=== PATIENT | male | born 1950 | race Caucasian/White ===

== ENCOUNTER 2021-02-27 15:31 | Emergency (ER) | payer OTHER ==
[~2021-02-27] VITALS: Ht 182.9 cm; Wt 77.1 kg
[~2021-02-27 15:31] MED LIST: ACET500 PO; ALBU90OI INH; ASPI81CH PO; BUDE.25 NEB; CYAN100 PO; DOCU100 PO; FOLI1 PO; MEGE40T PO; METH5 PO; METO25 PO; METO25ER PO; Multivitamin1 EAC1 PO; OXYC5 PO; PYRI100 PO; QUET100 PO; RANI150 PO; THIA100 PO; TRAZ50 PO; ZESTORETIC 20-121 EA PO
[2021-02-27] MEDS ORDERED: LOPE2C PO (20:04)
== END 2021-02-27 20:35 | disposition home or self-care (01) ==
LOC: ER 15:31
DX: R19.7 Diarrhea, unspecified (principal); E87.6 Hypokalemia; R00.0 Tachycardia, unspecified; I25.10 Atherosclerotic heart disease of native coronary artery without angina pectoris; I10 Essential (primary) hypertension; I48.91 Unspecified atrial fibrillation; E78.00 Pure hypercholesterolemia, unspecified; F17.210 Nicotine dependence, cigarettes, uncomplicated; Z79.82 Long term (current) use of aspirin; Z79.899 Other long term (current) drug therapy
CPT/HCPCS: 93005; 93010; 96365; 96366; 96368; 99285-25; J3475; J3480; J7030

== ENCOUNTER 2021-07-01 16:24 | Inpatient (IN) | payer OTHER ==
[~2021-07-01] VITALS: Ht 182.9 cm; Wt 60.8 kg
[~2021-07-01 16:24] MED LIST changes: +LOPE2C PO
[2021-07-01] MEDS ORDERED: ATOR40TA PO (16:43)
[2021-07-01] MEDS ORDERED: THERA-D2000 UNIT PO (16:44)
[2021-07-01] MEDS ORDERED: LEVOTHYROXINE PO (16:45)
[2021-07-01] MEDS ORDERED: OMEP20ER PO (16:46)
[2021-07-01 17:09] LABS: BASOPHILS ABSOLUTE AUTO 0.03 K/mm3 (0.00-0.23); BASOPHILS PERCENT AUTO 0 % (0-2); EOSINOPHILS PERCENT AUTO 0 % (0-6); Hematocrit 34.5 % (37.0-53.0); Hemoglobin 12.3 g/dL (13.5-17.5); IMMATURE GRAN ABSOLUTE AUTO 0.24 K/mm3 (0.00-0.10); IMMATURE GRAN PERCENT AUTO 1 % (0-1); LYMPHOCYTES ABSOLUTE AUTO 0.68 K/mm3 (0.84-5.20); LYMPHOCYTES PERCENT AUTO 3 % (21-46); MONOCYTES ABSOLUTE AUTO 4.73 K/mm3 (0.16-1.47); MONOCYTES PERCENT AUTO 22 % (4-13); Mean Corpuscular HGB 35.8 pg (26.0-34.0); Mean Corpuscular HGB Conc 35.7 g/dL (31.5-36.5); Mean Corpuscular Volume 100 fL (80-100); Mean Platelet Volume 12.2 fL (9.1-12.4); NEUTROPHILS ABSOLUTE AUTO 15.99 K/mm3 (1.96-9.15); NEUTROPHILS PERCENT AUTO 74 % (41-73); Platelet Count 199 K/mm3 (150-400); RDW Coefficient Variation 14.6 % (11.7-14.2); RDW Standard Deviation 52.9 fL (35.1-46.3); Red Blood Cell Count 3.44 M/mm3 (4.30-5.90); White Blood Cell Count 21.67 K/mm3 (4.00-11.30)
[2021-07-01 17:29] LABS: Alanine Aminotransfer (ALT/SGP 36 U/L (12-78); Albumin, Blood 3.2 g/dL (3.4-5.0); Albumin/Globulin Ratio 0.8 (0.8-1.8); Alk Phos 113 U/L (50-136); Anion Gap 12 mmol/L (6-16); Aspartate Aminotrans (AST/SGOT 80 U/L (12-37); Bilirubin, Total 0.9 mg/dL (0.1-1.0); Blood Urea Nitrogen 32 mg/dL (8-24); Bun/Creatinine Ratio 49.6 (12.0-20.0); CO2, Blood 18 mmol/L (21-32); Chloride, Blood 105 mmol/L (98-108); Creatinine, Blood 0.65 mg/dL (0.60-1.20); Glomerular Filtration Rate >60 (60-); Glucose, Blood 195 mg/dL (70-99); Magnesium, Blood 1.8 mg/dL (1.6-2.4); Potassium, Blood 3.6 mmol/L (3.5-5.5); Sodium, Blood 135 mmol/L (136-145); Total Protein, Blood 7.2 g/dL (6.4-8.2)
[2021-07-01 17:43] LABS: Influenza A, PCR NEGATIVE (NEGATIVE); Influenza B, PCR NEGATIVE (NEGATIVE); Resp Syncytial Virus, PCR NEGATIVE (NEGATIVE); SARS-Cov-2 (COVID-19) PCR, MMC NEGATIVE (NEGATIVE)
--- NOTE | 2021-07-01 23:05 | NUR ---
SISTER / MANAGES PT CARE [facility] [phone]
[2021-07-01 23:32] LABS: Anti-Xa UFH, PHA Monitoring <0.10 IU/mL; Prothrombin Time Results 10.5 Sec (9.7-11.5)
[2021-07-02 01:15] LABS: BASOPHILS ABSOLUTE AUTO 0.03 K/mm3 (0.00-0.23); BASOPHILS PERCENT AUTO 0 % (0-2); EOSINOPHILS ABSOLUTE AUTO 0.02 K/mm3 (0.00-0.68); EOSINOPHILS PERCENT AUTO 0 % (0-6); Hematocrit 32.1 % (37.0-53.0); Hemoglobin 10.9 g/dL (13.5-17.5); IMMATURE GRAN PERCENT AUTO 1 % (0-1); LYMPHOCYTES ABSOLUTE AUTO 1.22 K/mm3 (0.84-5.20); LYMPHOCYTES PERCENT AUTO 7 % (21-46); MONOCYTES ABSOLUTE AUTO 3.45 K/mm3 (0.16-1.47); MONOCYTES PERCENT AUTO 20 % (4-13); Mean Corpuscular Volume 103 fL (80-100); Mean Platelet Volume 11.5 fL (9.1-12.4); NEUTROPHILS PERCENT AUTO 72 % (41-73); Platelet Count 151 K/mm3 (150-400); RDW Coefficient Variation 14.7 % (11.7-14.2); RDW Standard Deviation 55.8 fL (35.1-46.3); Red Blood Cell Count 3.11 M/mm3 (4.30-5.90); White Blood Cell Count 16.92 K/mm3 (4.00-11.30)
[2021-07-02 01:35] LABS: International Normalized Ratio 1.08; Prothrombin Time Results 11.3 Sec (9.7-11.5)
[2021-07-02 01:46] LABS: Alanine Aminotransfer (ALT/SGP 33 U/L (12-78); Albumin, Blood 2.9 g/dL (3.4-5.0); Albumin/Globulin Ratio 0.8 (0.8-1.8); Alk Phos 93 U/L (50-136); Anion Gap 9 mmol/L (6-16); Aspartate Aminotrans (AST/SGOT 67 U/L (12-37); Bilirubin, Total 0.5 mg/dL (0.1-1.0); Blood Urea Nitrogen 29 mg/dL (8-24); Bun/Creatinine Ratio 55.6 (12.0-20.0); CO2, Blood 24 mmol/L (21-32); Calcium, Blood 8.3 mg/dL (8.5-10.1); Chloride, Blood 105 mmol/L (98-108); Creatinine, Blood 0.52 mg/dL (0.60-1.20); Globulin, Blood 3.7 g/dL (2.2-4.0); Glomerular Filtration Rate >60 (60-); Glucose, Blood 120 mg/dL (70-99); Magnesium, Blood 2.3 mg/dL (1.6-2.4); Potassium, Blood 3.4 mmol/L (3.5-5.5); Sodium, Blood 138 mmol/L (136-145); Total Protein, Blood 6.6 g/dL (6.4-8.2)
[2021-07-02 08:42] LABS: Source, Urine Foley catheter
[2021-07-02 08:50] LABS: Appearance, Urine Clear (Clear); Bilirubin, Urine Neg (Neg); Blood, Urine 1+ (Neg); Color, Urine Yellow (P-Yellow); Glucose Qualitative, Urine Neg (Neg); Ketones, Urine Neg (Neg); Leukocyte Esterase, Urine Neg (Neg); Nitrite, Urine Neg (Neg); Protein, Urine 2+ (Neg); Specific Gravity, Urine 1.025 (1.003-1.022); Urobilinogen, Urine NORM (Normal)
[2021-07-02 09:09] LABS: U Amphetamine Screen Not Detected; U Barbituate Screen Not Detected; U Benzodiazapine Screen Not Detected; U Buprenorphine Screen Not Detected; U Cannabinoids Screen Not Detected; U Cocaine Screen Not Detected; U Methadone Screen Not Detected; U Methamphetamine Screen Not Detected; U Opiates Screen DETECTED; U Oxycodone Screen Not Detected; U Phencyclidine Screen Not Detected; U Propoxyphene Screen Not Detected
[2021-07-02 09:17] LABS: Bacteria Rare /hpf; Mucus Mod (0-Heavy); Red Blood Cells, Urine 0-2 /hpf (0-2); Squamous Epithelial Cells Not Seen /hpf (Few); White Blood Cells, Urine 0-2 /hpf (0-5)
--- NOTE | 2021-07-02 11:41 | NUR ---
Received call from Primary RN Lenora. Event Staff and Hospitalist reports family for Pt would benefit from discussion regarding goals of care including considering comfort care and hospice. 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 Pt has has FX hip and is not a candidate for surgery. Pt resting in bed with his eyes close. Pt awakes to moderate level of verbal stimuli. [place] Ended visit to allow Pt to rest. Called and spoke with Pt's sister Melisa. Melisa reports just speaking with rod and tube straightener. Offered therapeutic listening and engaged in discussion regarding goals of care. Educated on comfort care and hospice philosophy with V/U made by Melisa. Melisa would like to move forward with comfort, she request that the IV NS be continued until she arrives this evening. She reports living in [place] and is flying into [place] this evening. She will arrive to the hospital at approximately 1900. Melisa reports Pt lives alone and receives caregiving support approximately 3 hours a day. No other concerns reported at this time. Spoke with Dr Payton. Placed comfort care order, comfort care order set, D/C maintenance medications, and continued NS at 50 Mls per hour per V/O from Dr Payton. Will D/C NS when sister arrives. Spoke with Caremanjesusita Hurtado and discussed case. PPS 40% Palliative Care will remain available for symptom management and supportive visits.
--- NOTE | 2021-07-02 14:27 | NUR ---
PT TRANSITIONED TO COMFORT CARE FOR THE SHIFT. SISTER TO COME AND SEE PT TODAY AT 7PM, CAREGIVER AT BEDSIDE RIGHT NOW TO VISIT PT. NS REMAIND RUNNING AT 50MLS/HR, ATIVAN GIVEN X1 GIVEN THIS AM FOR AGITATION. PAIN MEDS GIVEN RECENTLY MORPHINE 10MG SL PO FOR LEFT HIP PAIN. PT REPOSIONED IN BED FOR COMFORT, ORAL CARE PROVIDED. REMAINS NPO PT ASPIRATED ON PO FLUIDS THIS AM. FIGUEROA IN PLACE, DRAINING PATENT VIA GRAVITY. WILL MONITOR
--- NOTE | 2021-07-02 21:13 | NUR ---
FAMILY MEMBER AT BEDSIDE, PT ABLE TO RESPONSE TO PAINFUL STIMULI. ABLE TO RESPONSE YES WHEN ASKED IF HE WAS IN PAIN, MORPHIN GIVEN PER eMAR. VSS BP 126\62 MAP 82, SPO2 99% ON RA. FAMILY MEMBER LEFT FOR HOME WILL BE BACK IN THE MORNING.
--- NOTE | 2021-07-02 22:51 | NUR ---
PATIENT REPOSITION AT 2200. PT DENIES PAIN AT THIS TIME. PT RESPONSIVE TO VERBAL STIMULI.
--- NOTE | 2021-07-03 00:07 | NUR ---
PT REPOSITIONED, PT RESPONSE TO VERBAL STIMULI. HE ENDORSE PAIN WHEN ASKED , PAIN MEDS ADMINISTERED PER eMAR. IV FLUIDS. FAMILY WAS OK FOR PT TO BE ON CONTINOUS IV FLUID.
--- NOTE | 2021-07-03 02:31 | NUR ---
REPOSITIONED , LYING ON THE RIGHT SIDE. PAIN MEDICATION ADMINISTERED PER eMAR. IV FLUID , FIGUEROA CATHETER IN PLACE.
--- NOTE | 2021-07-03 04:42 | NUR ---
PATIENT REPOSITION WITH PILLOWS. IN PAIN WILL MEDICATE PER eMAR.PT RESPONSIVE TO VERBAL STIMULI. FIGUEROA IN PLACE. IV FLUID.
--- NOTE | 2021-07-03 04:52 | NUR ---
PATIENT REPOSITIONED WITH PILLOWS, RESPONSE TO VERBAL STIMULI. PAIN MEDS GIVEN PER eMAR . FOLY CATHERTER IN PLACE, IV FLUID INFUSING.
--- NOTE | 2021-07-03 07:30 | NUR ---
PT RESPONDING TO VERBAL STIMULI, ABLE TO COMMUNICATE NEEDS BUT VERY DROWSY. FIGUEROA IS PATENT AND DRAINING, IVF INFUSING, PT POSITIONED ON PILLOWS.
--- NOTE | 2021-07-03 10:00 | NUR ---
PT TRANSFERRING TO MEDICAL FLOOR TO ROOM 301, REPORT CALLED TO YASSINE HAYES. 1030: TRANSFERRED VIA BED, ACCOMPANIED BY SISTER.
--- NOTE | 2021-07-03 11:07 | NUR ---
COMFORT CARE NOTE MR SANTOS WAS TRANSFERED TO MEDS FROM PCU. SISTER WITH HIM. USED SLIDE SHEET TO MOVE HIM ONTO MEDS BED. GIVEN PO ROXINOL AND WAITING FOR IT TO TAKE EFFECT BEFORE REPOSITIONING HIM.
--- NOTE | 2021-07-03 11:11 | NUR ---
Received referral from nurse career transition specialist (Genesis Waddell) on 07/03/2021. Patient is to discharge with orders for hospice and family elected [facility]. Gathered supporting documentation for referral (face sheet, labs, imaging, progress notes, palliative care note, and H&P) and sent to [facility] Intake DATA COMMUNICATIONS TECHNICIAN (Elizabeth Shelley) for review of hospice appropriateness and ability to accept patient onto service post discharge. Will await further information from hospice Intake DATA COMMUNICATIONS TECHNICIAN regarding the above. Paula Lira Referral Liaison
--- NOTE | 2021-07-03 15:26 | NUR ---
ROXANOL 15MG GIVEN WITH GOOD EFFECT FOR PAIN CONTROL PRIOR TO REPOSITIONING. REPOSITIONING IS DONE SLOWLY AND CAREFULLY, AND IT HURTS TO MOVE, BUT HE SAID THE ROXANOL IS HELPFUL AND ADEQUATE. THIS LAST TIME I ASKED HE SAID HIS PAIN WAS A 5/10 ON MOVEMENT AND THAT'S TOLERABLE. MOST OF THE TIME HE CAN'T DESCRIBE HIS PAIN ON THE PAIN SCALE. RELAXED FACIAL EXPRESSION BETWEEN REPOSITIONING, LOOKS TO BE RESTING. FIGUEROA CARE DONE. MR SANTOS HAD ORAL CARE FROM HIS SISTER EARLIER AND DECLINED IT NOW. BED LOW. CALL LIGHT IN REACH.
--- NOTE | 2021-07-03 16:41 | NUR ---
PT MORE AWAKE, SAID THE 10MG ROXANOL HELPED TO MAKE HIM COMFORTABLE. FAMILY AT THE BEDSIDE, REPOSITIONED ONTO HIS BACK WITH PILLOWS TO PROP UP HIS RIGHT SHOULDER. HE SAID HE FEELS "DAMN COMFORTABLE".
--- NOTE | 2021-07-03 16:53 | NUR ---
Received notification from [facility] Intake AUTOMATIC DEVELOPER (Elizabeth Shelley) that patient is hospice appropriate and able to be accepted onto service post discharge. Will attempt to meet with patient and family tomorrow to further discuss the above. Will continue to monitor and follow for discharge. Paula Lira Referral Liaison
--- NOTE | 2021-07-03 17:43 | NUR ---
Pt transferred from PCU to medical floor today. Sister at bedside. No s/s of distress noted. Palliative care to remain available.
--- NOTE | 2021-07-03 18:00 | NUR ---
Spiritual Care Visit: Referred by Nurse at the request of NOK and Care Provider. Pt, was awake and in bed, and welcomed my visit. Pt. displayed evidence of somnolence. Established rapport with Pt. Others left the room as the pt. and I spoke of issues or henrietta and belief. Pt. verbalized his desire to get well but displayed evidence of not understanding what Comfort Care meant to him. Pt. gave me his hand when I asked if we could pray. Prayed for Pt. Pt. continued to display evidence of somnolence. Pt. verbalized gratitude for the visit. As I departed, I spent time with (NOK) sister, and Care Provider. Provided anticipatory guidance for the Pt. moving to [place] hospice. Both verbalized gratitude my prompt response for the Spiritual Care visit.
--- NOTE | 2021-07-03 19:28 | NUR ---
MR SANTOS IS HERE FOR COMFORT CARE. PT DROWSY, WAKES UP TO VOICE. HE HAS DRY MOUTH AND HAS ACCEPTED ORAL CARE. HE HAS FRAGILE SKIN INTEGRITY - RED GIBSON ON HIS BACK AND LEGS. REPOSITIONED EVERY 2 HOURS. HE HAS DISCOMFORT REPOSITIONING BUT RESPONDED WELL TO ROXANOL 10 TO 15MG ORALLY. HE WANTED TO TRY SUPPER AND ATE A FEW SPOONFULS OF PUREED DIET SITTING UP IN BED. FIGUEROA CATHETER TO BEDSIDE DRAINAGE BAG IN PLACE FOR COMFORT (NEW HIP FRACTURE). FAMILY/ VISITORS HAVE BEEN WITH HIM TODAY. BED LOW, CALL LIGHT IN USE THOUGH PT HAS NOT USED IT TO CALL. PT HAS NOT MOVEED MUCH AT ALL INDEPENDENTLY BETWEEN REPOSITIONING.
--- NOTE | 2021-07-03 21:35 | NUR ---
comfort Pt reports pain with repositioning, premedicated with 15 MG Roxanol. Pt assisted with repositioning.
--- NOTE | 2021-07-03 23:08 | NUR ---
COMFORT PT FELT WARM TO TOUCH, BLACKET REMOVED, TURNED AND REPOSITIONED. MOUTH AND FIGUEROA CARE DONE. EMOTIONAL CARE GIVEN AND PT RESTING COMFORTABLY.
--- NOTE | 2021-07-04 05:25 | NUR ---
COMFORT: PATIENT IS RESTING COMFORTABLY, WATCHING TV WITH NO COMPLAINTS.
--- NOTE | 2021-07-04 05:26 | NUR ---
COMFORT: PATIENT IS REPOERTING BILAT HIP PAIN, 15 MG OF ROXANOL WAS GIVEN ALONG WITH T&P AND PO FLUIDS.
--- NOTE | 2021-07-04 05:28 | NUR ---
COMFORT: PATIENT HAD GOOD EFFECT FROM ROXANOL GIVEN FOR PAIN. REST COMFORTABLY AT THIS TIME.
--- NOTE | 2021-07-04 05:50 | NUR ---
COMFORT: PATIENT IS CALLING OUT TO PEOPLE THEY WALK BY THE ROOM. PULLING HIS GOWND OFF AND RESTLESS. PO FLUIDS AND ATIVAN IV ARE GIVEN
--- NOTE | 2021-07-04 07:13 | NUR ---
SHIFT SUMMARY: PATIENT IS ALERT TO SELF ONLY, REPORTING PAIN IN LEFT HIP WITH MOVEMENT. ROXANOL IS GIVEN X2 WITH GOOD EFFECT. OBSERVED TO BE RESTLESS THIS AM, PULLING OFF GOWNED. ATIVAN WAS GIVEN WITH GOOD EFFECT.
[2021-07-04] MEDS ORDERED: ATROPINE SULFATE2 M5 SL (12:52)
[2021-07-04] MEDS ORDERED: BISA5EC PO (12:52)
[2021-07-04] MEDS ORDERED: ACETAMINOPHEN PR (12:52)
[2021-07-04] MEDS ORDERED: FAMO20 PO (12:52)
[2021-07-04] MEDS ORDERED: ONDA4ODT MM (12:53)
[2021-07-04] MEDS ORDERED: Nicoderm Cq1 EAC1 TOP (12:53)
[2021-07-04] MEDS ORDERED: MORP20L SL (12:53)
[2021-07-04] MEDS ORDERED: LOPE2C PO (12:53)
[2021-07-04] MEDS ORDERED: LORA.5 PO (12:53)
[2021-07-04] MEDS ORDERED: TRANSDERM-SCOP1 EAC9 TOP (12:54)
[2021-07-04 13:08] LABS: Influenza A, PCR NEGATIVE (NEGATIVE); Influenza B, PCR NEGATIVE (NEGATIVE); Resp Syncytial Virus, PCR NEGATIVE (NEGATIVE); SARS-Cov-2 (COVID-19) PCR, MMC NEGATIVE (NEGATIVE)
--- NOTE | 2021-07-04 13:52 | NUR ---
Late Entry from 07/04/2021 at 1300: Met with patient patient's sister (Melisa Perera) to further hospice services and election of [facility]. Patient and sister is agreeable to the above. Discussed what hospice is (reserved for patients with a terminal diagnosis with life expectancy of 6 months or less). Discussed that some patients exceed the 6 months expectancy and stay on service while other patients may stabilize and come off hospice. Patient and sister verbalized understanding of the above. Discussed with patient and sister that hospice service focuses on quality of life at the end of life and that rather than measuring the quantity of days, the quality of those days would be measured. Discussed with patient and sister that with hospice service the goal would be to keep the patient out of the hospital and comfortable by managing symptoms at home. Patient and sister verbalized understanding. Discussed the people, prescriptions, and equipment of hospice. People- discussed the team of people and their roles (RNs, chaplains, therapists, LCSWs, CNAs, and volunteers) that would be there to support not only the patient but also their family during this time. Explained to the patient and sister that the team would be custom tailored to the patient needs during this time. Patient and sister verbalized understanding. Prescriptions- discussed that [facility] to provide medications related to the hospice diagnosis and for symptom management. All other medications that patient chose to stay on would be patient's and/or patient's family's responsibility to provide and pay for. Patient and sister verbalized understanding. Discussed that upon discharge patient would be given three prescriptions, one for morphine 20mg/mL #30mL (0.25mL - 1mL PO/SL Q1H PRN SOB/pain), one for lorazepam 0.5mg #20 (1 - 2 PO Q4H PRN anxiety), and one for hyoscyamine 0.125mg SL tablets #30 (1 SL Q2H PRN secretions). Explained to the patient and sister that as patient would not yet be admitted to hospice service at the time of discharge those prescriptions would be patient/patient's family's responsibility to fill and pay for. Patient and sister verbalized understanding. Equipment- discussed with patient that we contract through [employer] to provide DME such as hospital beds, commodes, etc. to patient. Patient and sister verbalized understanding. As patient is discharging to [facility], there is currently no DME needs for patient per facility. Discussed with patient and sister that once patient was admitted onto hospice services the goal would be for them to contact us ([facility]) over contacting 911 or presenting back to the hospital/ED. Patient and sister verbalized understanding. Discussed the tentative discharge plans for Wednesday- 07/04/2021 at 1400 with preferred method of transport- medical transport via gurney. Discussed with patient and sister that this telegraphic typewriter operator chief would arrange transportation for patient. Patient and sister verbalized understanding. Offered a chance for patient and sister to ask questions regarding the above of which there were none. Will continue to monitor and follow as appropriate for discharge. Paula Lira Referral Liaison
--- NOTE | 2021-07-04 13:53 | NUR ---
Patient is to discharge at 1400 to [facility] with orders for hospice. Contacted [facility] at the [facility] ([place]) to arrange gurney transport to facility listed above. Pick-up at 1400 will be provided by [facility]. Faxed copy of face sheet, PCS form, and DNR status to the [facility] office and [facility] office per protocol. Placed copies of the above in nurse windows server engineer for transportation maintenance specialist. Notified nurse floor care specialist (Lupe Miles), ACC (Migdalia Bruce), Charge RNs (Fredi Castillo and Eloina Miles), and bedside RN (Davina Zepeda) of the above. All are agreeable to the above. Requested discharge orders from hospitalist (Dr. Payton). Provided hard copy prescriptions for morphine and lorazepam to facility via facility discharge envelope. Copies of prescriptions faxed to [facility] (Harry [facility] nurse) and facility's preferred pharmacy ([facility]). Faxed copies of discharge order and med list to [facility] grease monkey and [facility]acy Cuevas ([facility] [address] nurse). Additionally discharge medication list was faxed to facility's preferred pharmacy ([facility]). No further interventions required. Paula Lira Referral Liaison
--- NOTE | 2021-07-04 14:19 | NUR ---
PT DISCHARGED @ THIS TIME PT IV'S DC'ED. SISTER @ BEDSIDE, [facility]. PT REPORT CALLED INTO [facility] RN. PT COMFORTABLE @ TIME OF FELIPE. [place] IN PLACE.
== END 2021-07-04 14:19 | disposition home health service (06) | DRG 280 ==
LOC: ER 16:24 → PCU 19:16 → MEDS 19:16 → PCU 20:27 → MEDS 07-03 10:35 → ENPENDDIS 07-04 12:28 → MEDS 07-04 14:19
PROVIDERS: Pharmacist; Student in an Organized Health Care Education/Training Program; ADMIT Family Medicine
PROC: B246ZZZ Ultrasonography of Right and Left Heart (ICD-10-PCS; principal; 2021-07-02)
DX: I21.4 Non-ST elevation (NSTEMI) myocardial infarction (principal); S72.002A Fracture of unspecified part of neck of left femur, initial encounter for closed fracture; E87.1 Hypo-osmolality and hyponatremia; I82.90 Acute embolism and thrombosis of unspecified vein; M48.54XA Collapsed vertebra, not elsewhere classified, thoracic region, initial encounter for fracture; I35.0 Nonrheumatic aortic (valve) stenosis; F10.20 Alcohol dependence, uncomplicated; R74.01 Elevation of levels of liver transaminase levels; G89.4 Chronic pain syndrome; I10 Essential (primary) hypertension; E87.6 Hypokalemia; E03.9 Hypothyroidism, unspecified; Z20.822 Contact with and (suspected) exposure to COVID-19; R73.9 Hyperglycemia, unspecified; D72.829 Elevated white blood cell count, unspecified; F17.200 Nicotine dependence, unspecified, uncomplicated; W19.XXXA Unspecified fall, initial encounter; Y92.009 Unspecified place in unspecified non-institutional (private) residence as the place of occurrence of the external cause; F43.10 Post-traumatic stress disorder, unspecified; I48.91 Unspecified atrial fibrillation; Z63.5 Disruption of family by separation and divorce; Z86.73 Personal history of transient ischemic attack (TIA), and cerebral infarction without residual deficits; J44.9 Chronic obstructive pulmonary disease, unspecified; Z87.81 Personal history of (healed) traumatic fracture; D75.1 Secondary polycythemia; Z51.5 Encounter for palliative care
CPT/HCPCS: 0241U; 36415; 70450; 71045; 72125; 73502; 80053; 81001; 82947; 83690; 83735; 83880; 84100; 84484; 85025; 85520; 85610; 85730; 93005; 93010; 93306; 96365; 96375; 99285-25; A9270; G0480; J1644; J2060; J2270; J3475; J3480; J7030; J7040